=== PATIENT | female | born 2000 | race Caucasian/White ===

== ENCOUNTER 2024-03-01 17:18 | Emergency (ER) | payer MEDICAID, MEDICARE, SELFPAY ==
[~2024-03-01] VITALS: Ht 147.3 cm; Wt 49.5 kg
[2024-03-01 17:57] LABS: HEMATOCRIT 39.3 % (36.0-47.0); MEAN CORPUSCULAR HEMOGLOBIN 28.1 pg (27.0-33.0); MEAN CORPUSCULAR HGB CONC 33.1 g/dl (32.0-36.5); MEAN CORPUSCULAR VOLUME 84.9 fl (80.0-96.0); PLATELET COUNT, AUTOMATED 219 10^3/uL (150-450); RED BLOOD COUNT 4.63 10^6/uL (4.00-5.40); WHITE BLOOD COUNT 7.6 10^3/uL (4.0-10.0)
[2024-03-01 18:29] LABS: ETHYL ALCOHOL (ETHANOL) < 0.003 % (0.000-0.010)
[2024-03-01 18:31] LABS: ALBUMIN 3.6 G/DL (3.2-5.2); ALKALINE PHOSPHATASE 79 U/L (46-116); ALT/SGPT 39 U/L (7.0-40); AST/SGOT 30 U/L (<34); BILIRUBIN,DIRECT < 0.1 MG/DL (<0.4); BILIRUBIN,TOTAL 0.2 MG/DL (0.3-1.2); BLOOD UREA NITROGEN 14 MG/DL (9-23); CALCIUM LEVEL 9.6 MG/DL (8.5-10.1); CARBON DIOXIDE LEVEL 20 MMOL/L (20-31); CHLORIDE LEVEL 109 MMOL/L (98-107); CREATININE FOR GFR 0.68 MG/DL (0.55-1.30); GLOMERULAR FILTRATION RATE > 60.0 (>60); GLUCOSE, FASTING 100 MG/DL (60-100); SALICYLATE LEVEL < 3.0 MG/DL (<30); SODIUM LEVEL 136 MMOL/L (136-145); TOTAL PROTEIN 7.3 G/DL (5.7-8.2)
[2024-03-01 18:32] LABS: HCG, SERUM QUALITATIVE NEGATIVE (NEGATIVE)
[2024-03-01 18:34] LABS: THYROID STIMULATING HORMONE 1.698 uIU/ML (0.55-4.78)
[2024-03-01 18:52] LABS: AMPHETAMINES LEVEL URINE NEGATIVE (NEGATIVE); BARBITURATES URINE NEGATIVE (NEGATIVE); BENZODIAZEPINES URINE NEGATIVE (NEGATIVE); CANNABINOIDS URINE NEGATIVE (NEGATIVE); COCAINE METABOLITE URINE NEGATIVE (NEGATIVE); METHADONE URINE NEGATIVE (NEGATIVE); OPIATES URINE NEGATIVE (NEGATIVE); PHENCYCLIDINE URINE NEGATIVE (NEGATIVE)
[2024-03-01] MEDS ORDERED: BACIOIN5 TOP (23:32)
[2024-03-01] MEDS ORDERED: GUAI100S51 PO (23:32)
[2024-03-01] MEDS ORDERED: TRAZ-189 PO (23:32)
[2024-03-01] MEDS ORDERED: BISA10SU59 PR (23:32)
[2024-03-01] MEDS ORDERED: BANO25TA PO (23:32)
[2024-03-01] MEDS ORDERED: HYDR-4570 PO (23:32)
[2024-03-01] MEDS ORDERED: MIRA33506 PO (23:32)
[2024-03-01] MEDS ORDERED: SYST0.6S OU (23:32)
[2024-03-01] MEDS ORDERED: MILKSUS3 PO (23:32)
[2024-03-01] MEDS ORDERED: IBUP-1720 PO (23:32)
[2024-03-01] MEDS ORDERED: SENN8.6T28 PO (23:32)
[2024-03-01] MEDS ORDERED: [UNRECOGNIZED DRUG - CODE] TOP (23:32)
[2024-03-01] MEDS ORDERED: FLEEENE12 PR (23:32)
[2024-03-01] MEDS ORDERED: SFHHYD1CR EXT (23:32)
[2024-03-01] MEDS ORDERED: MULT-40 PO (23:32)
[2024-03-01] MEDS ORDERED: SIRO1TAB3 PO (23:32)
[2024-03-01] MEDS ORDERED: POLY1.4S OU (23:32)
[2024-03-01] MEDS ORDERED: MOME13HF8 INH (23:32)
[2024-03-01] MEDS ORDERED: ALBU8.5H INH (23:32)
[2024-03-01] MEDS ORDERED: METF500T13 PO (23:32)
[2024-03-01] MEDS ORDERED: PERP2TAB20 PO (23:32)
[2024-03-01] MEDS ORDERED: PERP4TAB30 PO (23:32)
[2024-03-01] MEDS ORDERED: TOPI200T7 PO (23:32)
[2024-03-01] MEDS ORDERED: BENZ0.5T2 PO (23:32)
[2024-03-01] MEDS ORDERED: ACET-907 PO (23:32)
[2024-03-01] MEDS ORDERED: ONDA-83 PO (23:32)
[2024-03-01] MEDS ORDERED: VENL37.598 PO (23:32)
[2024-03-01] MEDS ORDERED: TUMS500C PO (23:32)
[2024-03-01] MEDS ORDERED: TIZA10TA PO (23:32)
[2024-03-01] MEDS ORDERED: LORA-930 PO (23:32)
[2024-03-01] MEDS ORDERED: HOME MED LIST COMPLETE! XX SCH (23:40)
[2024-03-02] MEDS: IBUPROFEN 100MG 5ML SUSP UDC DYE FREE PO ONE (00:47)
[2024-03-02] MEDS ORDERED: ACETAMINOPHEN 325 MG TAB PO PRN (07:50)
[2024-03-02] MEDS: SIROLIMUS 1 MG TAB (RAPAMUNE) PO SCH (09:35)
[2024-03-02] MEDS: VENLAFAXINE **XR** 37.5 MG CAPSULE PO SCH (09:36)
[2024-03-02] MEDS: BENZTROPINE 0.5 MG TAB PO SCH (09:36)
[2024-03-02] MEDS: metFORMIN (GLUCOPHAGE) 500MG TAB PO SCH (09:36)
[2024-03-02] MEDS: TOPIRAMATE (TopAMAX) 100 MG TAB PO SCH (09:36)
[2024-03-02] MEDS: LORATADINE 10 MG TAB PO SCH (09:36)
[2024-03-02] MEDS: MIRALAX *UNIT DOSE* 17GM PACKET PO SCH (09:37)
[2024-03-02] MEDS ORDERED: ALBUTEROL 90 MCG/ACT 8GM HFA INHALER INH PRN (12:10)
[2024-03-02] MEDS: OLANZapine ORAL DISINTEGRATING TAB 5MG PO ONE (12:30)
[2024-03-02 14:15] VITALS: BP 115/81; TEMP 97.6; O2SAT 98
[2024-03-02] MEDS ORDERED: PERPHENAZINE 2 MG TAB PO SCH (21:00)
[2024-03-02] MEDS ORDERED: traZODone 100 MG TAB PO SCH (21:00)
[2024-03-02] MEDS ORDERED: SENNA 8.6 MG TAB (SENOKOT) PO SCH (21:00)
[2024-03-02] MEDS ORDERED: diphenhydrAMINE 25MG CAP PO SCH (21:00)
[2024-03-02] MEDS ORDERED: tiZANidine 4 MG TAB PO SCH (21:00)
== END 2024-03-02 14:16 | disposition home or self-care (01) ==
LOC: M ED 17:18
DX: R45.851 Suicidal ideations (principal); F32.A Depression, unspecified; E11.9 Type 2 diabetes mellitus without complications; F41.9 Anxiety disorder, unspecified; G40.89 Other seizures; Z88.2 Allergy status to sulfonamides; Z88.8 Allergy status to other drugs, medicaments and biological substances; Z79.1 Long term (current) use of non-steroidal anti-inflammatories (NSAID); Z79.51 Long term (current) use of inhaled steroids; Z79.2 Long term (current) use of antibiotics; Z79.84 Long term (current) use of oral hypoglycemic drugs; Z79.810 Long term (current) use of selective estrogen receptor modulators (SERMs); Z79.899 Other long term (current) drug therapy
CPT/HCPCS: 36415; 80048; 80076; 80143; 80307; 82077; 84443; 84703; 85027; 87635; 99284; J7520

== ENCOUNTER 2025-01-16 12:19 | Emergency (ER) | payer MEDICARE, MEDICAID ==
[~2025-01-16] VITALS: Ht 152.4 cm; Wt 40.8 kg
[~2025-01-16 12:19] MED LIST: ACET-907 PO; ALBU8.5H INH; BACIOIN5 TOP; BANO25TA PO; BENZ0.5T2 PO; BISA10SU59 PR; FLEEENE12 PR; GUAI100S51 PO; HYDR-4570 PO; IBUP-1720 PO; LORA-930 PO; METF500T13 PO; MILKSUS3 PO; MIRA33506 PO; MOME13HF8 INH; MULT-40 PO; ONDA-83 PO; PERP2TAB20 PO; PERP4TAB30 PO; POLY1.4S OU; SENN8.6T28 PO; SFHHYD1CR EXT; SIRO1TAB3 PO; SYST0.6S OU; TIZA10TA PO; TOPI200T7 PO; TRAZ-189 PO; TUMS500C PO; VENL37.598 PO; [UNRECOGNIZED DRUG - CODE] TOP
[2025-01-16] MEDS ORDERED: ASPI81TA26 PO (14:19)
[2025-01-16] MEDS ORDERED: HOME MED LIST COMPLETE! XX SCH (14:45)
[2025-01-16 15:09] LABS: BLOOD UREA NITROGEN 10 MG/DL (9-23); CALCIUM LEVEL 9.2 MG/DL (8.5-10.1); CARBON DIOXIDE LEVEL 20 MMOL/L (20-31); CHLORIDE LEVEL 109 MMOL/L (98-107); CREATININE FOR GFR 0.66 MG/DL (0.55-1.30); GLOMERULAR FILTRATION RATE > 60.0 (>60); GLUCOSE, FASTING 135 MG/DL (60-100); POTASSIUM SERUM 3.8 MMOL/L (3.5-5.1); SODIUM LEVEL 140 MMOL/L (136-145)
[2025-01-16] MEDS: OLANZapine ORAL DISINTEGRATING TAB 5MG PO ONE (16:14)
[2025-01-16] MEDS: TOPIRAMATE (TopAMAX) 100 MG TAB PO SCH (21:40)
[2025-01-16 22:23] VITALS: BP 113/79; TEMP 97; O2SAT 99
[2025-01-17] MEDS: LORazepam 0.5 MG TAB PO STA (09:52)
== END 2025-01-17 10:52 | disposition home or self-care (01) ==
LOC: M ED 12:19
DX: F43.0 Acute stress reaction (principal); F79 Unspecified intellectual disabilities; J45.909 Unspecified asthma, uncomplicated; G40.909 Epilepsy, unspecified, not intractable, without status epilepticus; F32.A Depression, unspecified; Z88.2 Allergy status to sulfonamides; Z88.5 Allergy status to narcotic agent; Z88.8 Allergy status to other drugs, medicaments and biological substances; Z91.011 Allergy to milk products; Z79.1 Long term (current) use of non-steroidal anti-inflammatories (NSAID); Z79.51 Long term (current) use of inhaled steroids; Z79.2 Long term (current) use of antibiotics; Z79.84 Long term (current) use of oral hypoglycemic drugs; Z79.899 Other long term (current) drug therapy

== ENCOUNTER 2025-01-18 04:16 | Emergency (ER) | payer MEDICARE, MEDICAID ==
[~2025-01-18] VITALS: Ht 144.8 cm; Wt 40.9 kg
[~2025-01-18 04:16] MED LIST changes: +ASPI81TA26 PO
[2025-01-18 12:12] VITALS: BP 134/80; TEMP 98.2; O2SAT 98
== END 2025-01-18 13:12 | disposition home or self-care (01) ==
LOC: M ED 04:16
DX: F60.3 Borderline personality disorder (principal); F79 Unspecified intellectual disabilities; E11.9 Type 2 diabetes mellitus without complications; G40.909 Epilepsy, unspecified, not intractable, without status epilepticus; Z88.2 Allergy status to sulfonamides; Z88.5 Allergy status to narcotic agent; Z88.8 Allergy status to other drugs, medicaments and biological substances; Z79.1 Long term (current) use of non-steroidal anti-inflammatories (NSAID); Z79.51 Long term (current) use of inhaled steroids; Z79.84 Long term (current) use of oral hypoglycemic drugs; Z79.899 Other long term (current) drug therapy

== ENCOUNTER 2025-04-02 19:38 | Emergency (ER) | payer MEDICARE, MEDICAID ==
[~2025-04-02] VITALS: Ht 142.2 cm; Wt 42.6 kg
[~2025-04-02 19:38] MED LIST changes: +TOPI-14 PO; -TOPI200T7 PO
[2025-04-02 20:25] LABS: HEMOGLOBIN 12.8 g/dl (12.0-15.5); MEAN CORPUSCULAR HEMOGLOBIN 27.4 pg (27.0-33.0); MEAN CORPUSCULAR HGB CONC 33.7 g/dl (32.0-36.5); MEAN CORPUSCULAR VOLUME 81.4 fl (80.0-96.0); PLATELET COUNT, AUTOMATED 204 10^3/uL (150-450); RED BLOOD COUNT 4.67 10^6/uL (4.00-5.40); WHITE BLOOD COUNT 7.7 10^3/uL (4.0-10.0)
[2025-04-02 20:57] LABS: AMPHETAMINES LEVEL URINE NEGATIVE (NEGATIVE)
[2025-04-02 20:58] LABS: BARBITURATES URINE NEGATIVE (NEGATIVE); BENZODIAZEPINES URINE NEGATIVE (NEGATIVE); CANNABINOIDS URINE NEGATIVE (NEGATIVE); COCAINE METABOLITE URINE NEGATIVE (NEGATIVE); METHADONE URINE NEGATIVE (NEGATIVE); OPIATES URINE NEGATIVE (NEGATIVE); PHENCYCLIDINE URINE NEGATIVE (NEGATIVE)
[2025-04-02 21:00] LABS: ETHYL ALCOHOL (ETHANOL) 0.004 % (0.000-0.010)
[2025-04-02 21:01] LABS: HCG, SERUM QUALITATIVE NEGATIVE (NEGATIVE)
[2025-04-02 21:02] LABS: ALBUMIN 3.8 G/DL (3.2-5.2); ALKALINE PHOSPHATASE 83 U/L (35-104); ALT/SGPT 30 U/L (7.0-40); AST/SGOT 21 U/L (<34); BILIRUBIN,DIRECT < 0.1 MG/DL (<0.4); BILIRUBIN,TOTAL 0.2 MG/DL (0.3-1.2); BLOOD UREA NITROGEN 13 MG/DL (9-23); CALCIUM LEVEL 9.1 MG/DL (8.5-10.1); CARBON DIOXIDE LEVEL 20 MMOL/L (20-31); CHLORIDE LEVEL 105 MMOL/L (98-107); CREATININE FOR GFR 0.71 MG/DL (0.55-1.30); GLOMERULAR FILTRATION RATE > 90.0 (>60); GLUCOSE, FASTING 119 MG/DL (60-100); POTASSIUM SERUM 3.6 MMOL/L (3.5-5.1); SALICYLATE LEVEL < 3.0 MG/DL (<30); SODIUM LEVEL 135 MMOL/L (136-145); TOTAL PROTEIN 7.3 G/DL (5.7-8.2)
[2025-04-02] MEDS ORDERED: PRED5TA PO (22:17)
[2025-04-02] MEDS ORDERED: FAMO20TA4 PO (22:40)
[2025-04-02] MEDS ORDERED: HOME MED LIST COMPLETE! XX SCH (22:50)
[2025-04-03] MEDS: metFORMIN (GLUCOPHAGE) 500MG TAB PO SCH (07:51)
[2025-04-03] MEDS ORDERED: metFORMIN (GLUCOPHAGE) 500MG TAB PO SCH (08:00)
[2025-04-03] MEDS ORDERED: BENZTROPINE 0.5 MG TAB PO SCH (09:00)
[2025-04-03] MEDS ORDERED: FAMOTIDINE 20 MG TAB PO SCH (09:00)
[2025-04-03] MEDS: MULTIVITAMINS/MINERALS THERAP 1 TAB PO SCH (09:00)
[2025-04-03] MEDS ORDERED: LORATADINE 10 MG TAB PO SCH (09:00)
[2025-04-03] MEDS: VENLAFAXINE **XR** 37.5 MG CAPSULE PO SCH (09:00)
[2025-04-03] MEDS: BENZTROPINE 0.5 MG TAB PO SCH (09:00)
[2025-04-03] MEDS: LORATADINE 10 MG TAB PO SCH (09:00)
[2025-04-03] MEDS ORDERED: TOPIRAMATE (TopAMAX) 100 MG TAB PO SCH (09:00)
[2025-04-03] MEDS ORDERED: VENLAFAXINE **XR** 37.5 MG CAPSULE PO SCH (09:00)
[2025-04-03] MEDS: FAMOTIDINE 20 MG TAB PO SCH (09:01)
[2025-04-03] MEDS: TOPIRAMATE (TopAMAX) 100 MG TAB PO SCH (09:01)
[2025-04-03] MEDS: MIRALAX *UNIT DOSE* 17GM PACKET PO SCH (09:10)
[2025-04-03] MEDS: PERPHENAZINE 2 MG TAB PO SCH (10:48)
[2025-04-03] MEDS: SIROLIMUS 1 MG TAB (RAPAMUNE) PO SCH (10:48)
[2025-04-03] MEDS ORDERED: ACETAMINOPHEN 325 MG TAB PO ONE (11:00)
[2025-04-03] MEDS: IBUPROFEN 400MG TAB PO ONE (11:08)
[2025-04-03 13:54] VITALS: BP 123/77; TEMP 97.9; O2SAT 98
[2025-04-03] MEDS ORDERED: predniSONE 5 MG TAB PO SCH ×2 (21:00)
[2025-04-03] MEDS ORDERED: traZODone 100 MG TAB PO SCH ×2 (21:00)
[2025-04-03] MEDS ORDERED: diphenhydrAMINE 50MG CAP PO SCH (21:00)
[2025-04-03] MEDS ORDERED: diphenhydrAMINE 25MG CAP PO SCH (21:00)
[2025-04-03] MEDS ORDERED: SENNA 8.6 MG TAB (SENOKOT) PO SCH (21:00)
[2025-04-03] MEDS ORDERED: tiZANidine 4 MG TAB PO SCH ×2 (21:00)
[2025-04-03] MEDS ORDERED: ASPIRIN 81MG ENTERIC TABLET PO SCH (21:00)
[2025-04-03] MEDS ORDERED: ASPIRIN 81MG CHEW TABLET PO SCH (21:00)
[2025-04-03] MEDS ORDERED: PERPHENAZINE 2 MG TAB PO SCH (21:00)
== END 2025-04-03 13:55 | disposition home or self-care (01) ==
LOC: M ED 19:38
DX: F89 Unspecified disorder of psychological development (principal); E11.9 Type 2 diabetes mellitus without complications; F32.A Depression, unspecified; Z88.2 Allergy status to sulfonamides; Z88.5 Allergy status to narcotic agent; Z88.8 Allergy status to other drugs, medicaments and biological substances; Z91.048 Other nonmedicinal substance allergy status; Z79.1 Long term (current) use of non-steroidal anti-inflammatories (NSAID); Z79.51 Long term (current) use of inhaled steroids; Z79.2 Long term (current) use of antibiotics; Z79.899 Other long term (current) drug therapy
CPT/HCPCS: 36415; 80048; 80076; 80143; 80307; 82077; 84443; 84703; 85027; 99284; J7520

== ENCOUNTER 2025-07-31 14:49 | Inpatient (IN) | payer MEDICARE, MEDICAID ==
[~2025-07-31] VITALS: Ht 152.4 cm; Wt 39.0 kg
[~2025-07-31 14:49] MED LIST changes: +FAMO20TA4 PO; +HYDR-3364 PO; -HYDR-4570 PO; +PRED5TA PO
[2025-07-31 16:14] LABS: PLATELET COUNT, AUTOMATED 256 10^3/uL (150-450)
[2025-07-31] MEDS ORDERED: PERP2TA PO (17:26)
[2025-07-31] MEDS ORDERED: HOME MED LIST COMPLETE! XX SCH (17:30)
[2025-07-31 18:30] LABS: AMPHETAMINES LEVEL URINE NEGATIVE (NEGATIVE); BARBITURATES URINE NEGATIVE (NEGATIVE); BENZODIAZEPINES URINE NEGATIVE (NEGATIVE); CANNABINOIDS URINE NEGATIVE (NEGATIVE); COCAINE METABOLITE URINE NEGATIVE (NEGATIVE); METHADONE URINE NEGATIVE (NEGATIVE); OPIATES URINE NEGATIVE (NEGATIVE); PHENCYCLIDINE URINE NEGATIVE (NEGATIVE)
[2025-07-31 18:33] LABS: ETHYL ALCOHOL (ETHANOL) < 0.003 % (0.000-0.010)
[2025-07-31 18:35] LABS: ALT/SGPT 43 U/L (7.0-40); AST/SGOT 46 U/L (<34); CALCIUM LEVEL 9.7 MG/DL (8.5-10.1); CARBON DIOXIDE LEVEL 21 MMOL/L (20-31); CHLORIDE LEVEL 108 MMOL/L (98-107); CREATININE FOR GFR 0.71 MG/DL (0.55-1.30); GLOMERULAR FILTRATION RATE > 90.0 (>60); POTASSIUM SERUM 3.7 MMOL/L (3.5-5.1); SALICYLATE LEVEL < 3.0 MG/DL (<30); SODIUM LEVEL 142 MMOL/L (136-145)
[2025-07-31] MEDS ORDERED: MAALOX 30 ML SUSP *UDC PO PRN (19:20)
[2025-07-31] MEDS ORDERED: BISACODYL 10 MG SUPP PR PRN (19:20)
[2025-07-31] MEDS ORDERED: MOM 30 ML SUSPENSION UDC PO PRN (19:20)
[2025-07-31] MEDS ORDERED: CALCIUM CARBONATE 500 MG CHEW U/D PO PRN (19:20)
[2025-07-31] MEDS: ASPIRIN 81 MG ENTERIC TABLET PO SCH (21:06)
[2025-07-31] MEDS: BENZTROPINE 0.5 MG TAB PO SCH (21:06)
[2025-07-31] MEDS: TOPIRAMATE 100 MG TAB PO SCH (21:06)
[2025-07-31] MEDS: PERPHENAZINE 2 MG TAB PO SCH (21:06)
[2025-07-31] MEDS: ACETAMINOPHEN 325 MG TAB PO PRN (21:16)
[2025-07-31 21:50] VITALS: BP 101/55; TEMP 96.5; O2SAT 98
[2025-08-01 06:51] VITALS: BP 117/66; TEMP 97.4; O2SAT 99
[2025-08-01] MEDS: VENLAFAXINE **XR** 37.5 MG CAPSULE PO SCH (09:28)
[2025-08-01] MEDS: metFORMIN 500 MG TAB PO SCH (09:28)
[2025-08-01] MEDS: LORATADINE 10 MG TAB PO SCH (09:28)
[2025-08-01] MEDS: SIROLIMUS 1 MG TAB (RAPAMUNE) PO SCH (09:34)
[2025-08-01 16:15] VITALS: BP 105/71; TEMP 97.4; O2SAT 97
[2025-08-01 20:30] VITALS: BP 135/92; TEMP 98; O2SAT 95
[2025-08-01] MEDS: traZODone 50 MG TAB PO PRN (20:31)
[2025-08-02 06:22] VITALS: BP 107/58; TEMP 97.4; O2SAT 98
== END 2025-08-02 11:24 | disposition home or self-care (01) | DRG 884 ==
LOC: M ED 14:49 → M ED INP 19:16 → M PSY 21:51
PROVIDERS: ADMIT Psychiatry & Neurology Neurology; ATTEND Psychiatry & Neurology Neurology
DX: F79 Unspecified intellectual disabilities (principal); R45.851 Suicidal ideations; F20.9 Schizophrenia, unspecified; F60.3 Borderline personality disorder; F41.9 Anxiety disorder, unspecified; F63.81 Intermittent explosive disorder; E11.9 Type 2 diabetes mellitus without complications; G80.9 Cerebral palsy, unspecified; F84.0 Autistic disorder; Z91.52 Personal history of nonsuicidal self-harm; Z91.51 Personal history of suicidal behavior; Z79.899 Other long term (current) drug therapy; R45.850 Homicidal ideations; Z79.84 Long term (current) use of oral hypoglycemic drugs; Z88.2 Allergy status to sulfonamides; Z88.5 Allergy status to narcotic agent; Z88.8 Allergy status to other drugs, medicaments and biological substances; Z91.011 Allergy to milk products; Z91.012 Allergy to eggs; Z91.048 Other nonmedicinal substance allergy status